=== PATIENT | female | born 1985 | race Two or more races ===

== ENCOUNTER 2017-06-23 02:48 | Emergency (ER) | payer OTHER ==
[2017-06-23 02:57] VITALS: O2SAT 96
[2017-06-23 03:22] LABS: % IMMATURE GRANULYOCYTES 0.6 % (0.0-1.1); ABSOLUTE IMMATURE GRANULOCYTES 0.09 10^3/uL (0.00-0.10); ADD DIFF? NO; ADD MORPH? NO; ADD SCAN? NO; ATYPICAL LYMPHOCYTE FLAG 10 (0-99); FRAGMENT RBC FLAG 0 (0-99); HEMATOCRIT 40.6 % (38.0-47.0); HEMOGLOBIN 13.9 g/dL (12.6-16.3); LEFT SHIFT FLG 0 (0-99); LIPEMIA HEMOLYSIS FLAG 90 (0-99); MEAN CELL HEMOGLOBIN 31.8 pg (27.9-34.1); MEAN CELL HEMOGLOBIN CONCENTR. 34.2 g/dL (32.4-36.7); MEAN CELL VOLUME 92.9 fL (81.5-99.8); MEAN PLATELET VOLUME 11.2 fL (8.7-11.7); PLATELET CLUMPS FLAG 10 (0-99); PLATELET COUNT 298 10^3/uL (150-400); RED BLOOD CELL COUNT 4.37 10^6/uL (4.18-5.33); RED CELL DISTRIBUTION WIDTH 12.7 % (11.5-15.2)
[2017-06-23 04:04] LABS: ANION GAP 13 mEq/L (8-16); CALCIUM 9.8 mg/dL (8.5-10.4); CARBON DIOXIDE 21 mEq/l (22-31); CHLORIDE 107 mEq/L (97-110); CREATININE 0.6 mg/dL (0.6-1.0); GLOMERULAR FILTRATION RATE > 60; GLUCOSE 98 mg/dL (70-100); POTASSIUM 3.9 mEq/L (3.5-5.2); SODIUM 141 mEq/L (134-144)
[2017-06-23 04:05] LABS: ALBUMIN 4.4 g/dL (3.5-5.0); BILIRUBIN,TOTAL 0.6 mg/dL (0.1-1.4); BILIRUBIN-CONJUGATED 0.1 mg/dL (0.0-0.5); BILIRUBIN-UNCONJUGATED 0.5 mg/dL (0.0-1.1); TOTAL PROTEIN 8.4 g/dL (6.3-8.2)
[2017-06-23] MEDS ORDERED: IOPAMIDOL (ISOVUE-300) 100 ML BTL ONE (04:09)
[2017-06-23 04:10] LABS: COLOR YELLOW; LEUKOCYTE ESTERASE,URINE 1+ (NEGATIVE); NITRITE,URINE NEGATIVE (NEGATIVE)
[2017-06-23 04:14] LABS: BACTERIA TRACE /hpf (NONE SEEN); MUCUS TRACE /lpf (NONE-1+)
--- NOTE | 2017-06-23 04:51 | EDPHY ---
H & P Stated Complaint: c/o R abd pain x 3 days, recent surg for kidney stones - 7.24 Time Seen by Provider: 06/23/17 03:15 HPI/ROS: Chief Complaint: Abdominal pain HPI: 31-year-old woman who is 14 days status post cholecystectomy at [facility] by Dr. Leigh. Patient presenting with worsening right upper quadrant pain for the last 3 days. She was seen 4 days ago again a [facility] for worsening pain at that time and had a CT scan of the abdomen, CT scan of the chest and blood work. Patient was sent home with oral analgesia. Patient states the pain has been worse for the last 3 days. She has had no nausea vomiting or diarrhea. She states she was told that on the CT scan from last week that her pain dex was mildly swollen. She denies fevers or chills. No chest pain or shortness of breath. There are no aggravating or alleviating factors. She has been taking Tylenol and omeprazole without any relief. ROS: 10 point Review of Systems is negative except as noted in the HPI. PMH: Denies Medications: Tylenol, ondansetron, omeprazole Allergies: No known drug allergies Social History: No smoking, no alcohol, no recreational drug use Family History: non-contributory Physical Exam: Gen: Awake, Alert, No Distress HEENT: Nose: no rhinorrhea Eyes: PERRLA, EOMI Mouth: Moist mucosa Neck: Supple, no JVD Chest: nontender, lungs clear to auscultation Heart: S1, S2 normal, no murmur Abd: Soft, she has right upper quadrant tenderness with guarding Back: no CVA tenderness, no midline tenderness Ext: no edema, non-tender Skin: no rash Neuro: CN II-XII intact, Sensation grossly intact, Strength 5/5 in bilateral upper and lower extremities - Medical/Surgical History Hx Asthma: No Hx Chronic Respiratory Disease: No Hx Diabetes: No Hx Cardiac Disease: No Hx Renal Disease: No Hx Cirrhosis: No Hx Alcoholism: No Hx HIV/AIDS: No Hx Splenectomy or Spleen Trauma: No Other PMH: kidney stones, surg to remove kidney stones - Social History Smoking Status: Never smoked Constitutional: Initial Vital Signs Temperature (C) 36.8 C 06/23/17 02:52 Heart Rate 87 06/23/17 02:52 Respiratory Rate 18 06/23/17 02:52 Blood Pressure 118/82 H 06/23/17 02:52 O2 Sat (%) 96 06/23/17 02:52 O2 Delivery Mode Room Air Allergies/Adverse Reactions: No Known Allergies Allergy (Unverified 06/23/17 02:57) Home Medications: Medication Instructions Recorded Omeprazole 06/23/17 Zofran 06/23/17 Medical Decision Making - Diagnostics Imaging Results: CT scan of the abdomen pelvis shows a large amount of fecal matter in the colon and some fecalization of the small bowel. There is no dilatation. There is no abscess. There is a borderline appendix which is consistent with the prior CT scan findings but there is no free fluid or other inflammatory changes. Interpreted by Dr. Johansen. Imaging: Discussed imaging studies w/ stuntman Radiologist ED Course/Re-evaluation: I have reviewed the patient's evaluation from a [facility] from 4 days ago. That noted indications complaining of left-sided chest and abdominal pain. She had a CT scan of the chest which was negative. She had a CT scan of the him abdomen pelvis which showed mild intrahepatic ductal dilatation without common bile duct dilatation. There is a mildly prominent appendix. White blood cell count at that time was 9.3. Patient's CT scan is consistent with constipation with fecalization. She has not have an obstructive pattern at this time. She has no evidence of abscess. I am giving her instructions for MiraLax, magnesium citrate and Fleet enemas. She will use at home. She will follow up with her surgeon in several days for further evaluation. - Data Points Laboratory Results: Laboratory Results 06/23/17 03:15 06/23/17 03:15 06/23/17 06/23/17 06/23/17 03:58 03:15 03:15 WBC RBC Hgb Hct MCV MCH MCHC RDW Plt Count MPV Neut % (Auto) Lymph % (Auto) [place] % (Auto) Eos % (Auto) Baso % (Auto) Nucleat RBC Rel Count Absolute Neuts (auto) Absolute Lymphs (auto) Absolute Monos (auto) Absolute Eos (auto) Absolute Basos (auto) Absolute Nucleated RBC Immature Gran % Immature Gran # Sodium 141 mEq/L mEq/L (134-144) Potassium 3.9 mEq/L mEq/L (3.5-5.2) Chloride 107 mEq/L mEq/L (97-110) Carbon Dioxide 21 mEq/l L mEq/l (22-31) Anion Gap 13 mEq/L mEq/L (8-16) BUN 7 mg/dL mg/dL (7-23) Creatinine 0.6 mg/dL mg/dL (0.6-1.0) Estimated GFR > 60 Glucose 98 mg/dL mg/dL (70-100) Calcium 9.8 mg/dL mg/dL (8.5-10.4) Total Bilirubin Conjugated Bilirubin Unconjugated Bilirubin AST ALT Alkaline Phosphatase Total Protein Albumin Lipase Beta HCG, Qual NEGATIVE Urine Color YELLOW Urine Appearance HAZY Urine pH 6.0 (5.0-7.5) Ur Specific [place] 1.006 (1.002-1.030) Urine Protein NEGATIVE (NEGATIVE) Urine Ketones NEGATIVE (NEGATIVE) Urine Blood NEGATIVE (NEGATIVE) Urine Nitrate NEGATIVE (NEGATIVE) Urine Bilirubin NEGATIVE (NEGATIVE) Urine Urobilinogen NEGATIVE EU EU (0.2-1.0) Ur Leukocyte Esterase 1+ H (NEGATIVE) Urine RBC 3-5 /hpf H /hpf (0-3) Urine WBC 5-10 /hpf H /hpf (0-3) Ur Epithelial Cells TRACE /lpf /lpf (NONE-1+) Urine Bacteria TRACE /hpf H /hpf (NONE SEEN) Urine Mucus TRACE /lpf /lpf (NONE-1+) Urine Glucose NEGATIVE (NEGATIVE) 06/23/17 06/23/17 03:15 03:10 WBC 14.72 10^3/uL H 10^3/uL (3.80-9.50) RBC 4.37 10^6/uL 10^6/uL (4.18-5.33) Hgb 13.9 g/dL g/dL (12.6-16.3) Hct 40.6 % % (38.0-47.0) MCV 92.9 fL fL (81.5-99.8) MCH 31.8 pg pg (27.9-34.1) MCHC 34.2 g/dL g/dL (32.4-36.7) RDW 12.7 % % (11.5-15.2) Plt Count 298 10^3/uL 10^3/uL (150-400) MPV 11.2 fL fL (8.7-11.7) Neut % (Auto) 67.8 % % (39.3-74.2) Lymph % (Auto) 21.4 % % (15.0-45.0) [place] % (Auto) 4.8 % % (4.5-13.0) Eos % (Auto) 4.9 % % (0.6-7.6) Baso % (Auto) 0.5 % % (0.3-1.7) Nucleat RBC Rel Count 0.0 % % (0.0-0.2) Absolute Neuts (auto) 9.99 10^3/uL H 10^3/uL (1.70-6.50) Absolute Lymphs (auto) 3.15 10^3/uL H 10^3/uL (1.00-3.00) Absolute Monos (auto) 0.70 10^3/uL 10^3/uL (0.30-0.80) Absolute Eos (auto) 0.72 10^3/uL H 10^3/uL (0.03-0.40) Absolute Basos (auto) 0.07 10^3/uL 10^3/uL (0.02-0.10) Absolute Nucleated RBC 0.00 10^3/uL 10^3/uL (0-0.01) Immature Gran % 0.6 % % (0.0-1.1) Immature Gran # 0.09 10^3/uL 10^3/uL (0.00-0.10) Sodium Potassium Chloride Carbon Dioxide Anion Gap BUN Creatinine Estimated GFR Glucose Calcium Total Bilirubin 0.6 mg/dL mg/dL (0.1-1.4) Conjugated Bilirubin 0.1 mg/dL mg/dL (0.0-0.5) Unconjugated Bilirubin 0.5 mg/dL mg/dL (0.0-1.1) AST 35 IU/L IU/L (14-46) ALT 158 IU/L H IU/L (9-52) Alkaline Phosphatase 85 IU/L IU/L (38-126) Total Protein 8.4 g/dL H g/dL (6.3-8.2) Albumin 4.4 g/dL g/dL (3.5-5.0) Lipase 104.0 IU/L IU/L (23-300) Beta HCG, Qual Urine Color Urine Appearance Urine pH Ur Specific [place] Urine Protein Urine Ketones Urine Blood Urine Nitrate Urine Bilirubin Urine Urobilinogen Ur Leukocyte Esterase Urine RBC Urine WBC Ur Epithelial Cells Urine Bacteria Urine Mucus Urine Glucose Medications Given: Discontinued Medications Morphine Sulfate (Morphine) 4 mg IVP EDNOW ONE Stop: 06/23/17 04:08 Last Admin: 06/23/17 04:08 Dose: 4 mg Departure - Departure Disposition: Home, Routine, Self-Care Clinical Impression: Constipation Condition: Good Instructions: Constipation (ED) Additional Instructions: Purchase magnesium citrate, MiraLax, and a Fleet enema from the pharmacy. Start taking MiraLax every day according to package instructions. Drink 1/2 bottle of the magnesium citrate and wait 1 hour. If you do not have a bowel movement drink the 2nd half of the bottle. Use a Fleet enema in combination with magnesium citrate. Rib follow up with your doctor in 2-3 days for re-evaluation. Return to the emergency department for increasing abdominal pain, nausea, vomiting, fevers, chills, or any other concerns. Referrals: [facility] [Other] - As per Instructions
[2017-06-23 05:56] VITALS: BP 97/52; PULSE 83; RESP 16; TEMP 98.4
== END 2017-06-23 05:55 | disposition home or self-care (01) ==
DX: K59.00 Constipation, unspecified (principal)
CPT/HCPCS: 96374; Q9967